=== PATIENT | male | born 1960 | race American Indian/Alaskan Native ===

== ENCOUNTER 2021-09-04 08:12 | Emergency (ER) | payer OTHER ==
[2021-09-04 08:21] VITALS: BP 160/90
[2021-09-04] MEDS ORDERED: SODIUM CHLORIDE 0.9% 1000 ML 1,000 ML IV ONE ×2 (08:53→10:16)
[2021-09-04] MEDS ORDERED: ONDANSETRON 4 MG/2 ML INJ IV ONE (08:53)
[2021-09-04] MEDS ORDERED: KETOROLAC 30 MG/1 ML INJ IV ONE (08:53)
[2021-09-04] MEDS ORDERED: MORPHINE 4 MG/1 ML INJ IV ONE (08:53)
--- NOTE | 2021-09-04 08:58 | Emergency Department Report ---
ED Abdominal Pain HPI - General Chief Complaint: Abdominal Pain Stated Complaint: ABD PAIN/NAUSEA PUI?: No Time Seen by Provider: 09/04/21 08:38 Source: EMS Mode of arrival: Stretcher Limitations: No Limitations - History of Present Illness Initial Comments: 61 YO COMES to ER this morning with acute onset right flank pain. He endorses nausea and vomiting x2. He denies any difficulty urinating. He denies any blood in his urine. Patient reports he is otherwise healthy. He has no medical history including no surgeries. He takes no medicines. He denies drugs alcohol or cigarettes. Patient was ambulatory to ER in severe pain. The pain is right flank. MD Complaint: flank pain -: Sudden, hour(s) Location: R flank Radiation: suprapubic Severity: severe Severity scale (0 -10): 10 Quality: cramping Consistency: constant Improves With: nothing Worsens With: nothing Associated Symptoms: nausea, vomiting. denies: diarrhea, fever, chills, cons tipation, dysuria, hematemesis, hematochezia, melena, hematuria, anorexia, syncope - Related Data Previous Rx's Medication Instructions Recorded Last Taken Type Ondansetron [Zofran Odt] 4 mg PO Q8HR PRN #10 tab.rapdis 09/04/21 Unknown Rx Tamsulosin [Flomax] 0.4 mg PO QDAY #10 cap 09/04/21 Unknown Rx cephALEXin [Keflex] 500 mg PO Q12HR #20 cap 09/04/21 Unknown Rx traMADoL [Ultram] 50 mg PO Q6HR PRN #10 tablet 09/04/21 Unknown Rx Allergies Allergy/AdvReac Type Severity Reaction Status Date / Time No Known Allergies Allergy Verified 09/04/21 08:20 ED Review of Systems ROS: Stated complaint: ABD PAIN/NAUSEA Other details as noted in HPI Comment: All other systems reviewed and negative ED Past Medical Hx - Past Medical History Previous Medical History?: No - Surgical History Past Surgical History?: No - Family History Family history: no significant - Social History Smoking Status: Never Smoker Substance Use Type: None - Medications Home Medications: Home Medications Medication Instructions Recorded Confirmed Last Taken Type Ondansetron [Zofran Odt] 4 mg PO Q8HR PRN #10 tab.rapdis 09/04/21 Unknown Rx Tamsulosin [Flomax] 0.4 mg PO QDAY #10 cap 09/04/21 Unknown Rx cephALEXin [Keflex] 500 mg PO Q12HR #20 cap 09/04/21 Unknown Rx traMADoL [Ultram] 50 mg PO Q6HR PRN #10 tablet 09/04/21 Unknown Rx ED Physical Exam - General Limitations: No Limitations General appearance: alert, in no apparent distress - Head Head exam: Present: atraumatic, normocephalic - Eye Eye exam: Present: normal appearance - ENT ENT exam: Present: mucous membranes moist - Neck Neck exam: Present: normal inspection - Respiratory Respiratory exam: Present: normal lung sounds bilaterally. Absent: respiratory distress - Cardiovascular Cardiovascular Exam: Present: regular rate, normal rhythm. Absent: systolic murmur, diastolic murmur, rubs, gallop - GI/Abdominal GI/Abdominal exam: Present: soft, normal bowel sounds - Rectal Rectal exam: Present: deferred - Extremities Exam Extremities exam: Present: normal inspection - Back Exam Back exam: Present: normal inspection - Neurological Exam Neurological exam: Present: alert, oriented X3 - Psychiatric Psychiatric exam: Present: normal affect, normal mood - Skin Skin exam: Present: warm, dry, intact, normal color. Absent: rash ED Course Vital Signs 09/04/21 08:19 Temperature 97.7 F Pulse Rate 63 Respiratory 14 Rate Blood Pressure 160/90 [Right] O2 Sat by Pulse 100 Oximetry ED Medical Decision Making - Lab Data Result diagrams: 09/04/21 09:08 09/04/21 09:08 - Radiology Data Radiology results: report reviewed, image reviewed SEE REPORT - Medical Decision Making Lab Results 09/04/21 09/04/21 09/04/21 Range/Units 09:08 09:08 09:46 WBC 15.5 H (4.5-11.0) K/mm3 RBC 5.26 H (3.65-5.03) M/mm3 Hgb 14.6 (11.8-15.2) gm/dl Hct 45.4 (35.5-45.6) % MCV 86 (84-94) fl MCH 28 (28-32) pg MCHC 32 (32-34) % RDW 14.1 (13.2-15.2) % Plt Count 236 (140-440) K/mm3 Lymph % (Auto) 7.5 L (13.4-35.0) % [place] % (Auto) 3.5 (0.0-7.3) % Eos % (Auto) 0.1 (0.0-4.3) % Baso % (Auto) 1.0 (0.0-1.8) % Lymph # (Auto) 1.2 (1.2-5.4) K/mm3 [place] # (Auto) 0.5 (0.0-0.8) K/mm3 Eos # (Auto) 0.0 (0.0-0.4) K/mm3 Baso # (Auto) 0.2 H (0.0-0.1) K/mm3 Seg Neutrophils % 87.9 H (40.0-70.0) % Seg Neutrophils # 13.6 H (1.8-7.7) K/mm3 Sodium 137 (137-145) mmol/L Potassium 3.4 L (3.6-5.0) mmol/L Chloride 99.9 (98-107) mmol/L Carbon Dioxide 20 L (22-30) mmol/L Anion Gap 21 mmol/L BUN 11 (9-20) mg/dL Creatinine 1.3 (0.8-1.3) mg/dL Estimated GFR > 60 ml/min BUN/Creatinine Ratio 8 % Glucose 111 H (75-100) mg/dL Calcium 9.0 (8.4-10.2) mg/dL Total Bilirubin 0.60 (0.1-1.2) mg/dL Direct Bilirubin < 0.2 (0-0.2) mg/dL Indirect Bilirubin 0.4 mg/dL AST 22 (5-40) units/L ALT 20 (7-56) units/L Alkaline Phosphatase 89 (35-129) units/L Total Protein 7.8 (6.3-8.2) g/dL Albumin 4.4 (3.9-5) g/dL Albumin/Globulin Ratio 1.3 % Amylase 643 H (27-131) units/L Lipase 39 (13-60) units/L Urine Color Yellow (Yellow) Urine Turbidity Clear (Clear) Urine pH 6.0 (5.0-7.0) Ur Specific [place] 1.030 (1.003-1.030) Urine Protein 100 mg/dl (Negative) mg/dL Urine Glucose (UA) Neg (Negative) mg/dL Urine Ketones Neg (Negative) mg/dL Urine Blood Neg (Negative) Urine Nitrite Neg (Negative) Urine Bilirubin Neg (Negative) Urine Urobilinogen 2.0 (<2.0) mg/dL Ur Leukocyte Esterase Neg (Negative) Urine WBC (Auto) 2.0 (0.0-6.0) /HPF Urine RBC (Auto) 56.0 (0.0-6.0) /HPF U Epithel Cells (Auto) < 1.0 (0-13.0) /HPF Urine Mucus Few /HPF Vital Signs 09/04/21 08:19 Temperature 97.7 F Pulse Rate 63 Respiratory 14 Rate Blood Pressure 160/90 [Right] O2 Sat by Pulse 100 Oximetry UA NOTED LABS NOTED CR NORMAL WBC NOTED CT NOTED 2L NS/ 1 GM ROCEPHIN AND PAIN MANAGEMENT IN ER 1000 REEXAM- RESTING COMFORTABLY [address] LAURA WILL DC HOME WITH DC PLAN OF CARE INCLUDING DIET, ACTIVITY, MEDS, FOLLOW UP. PT VERBALIZES UNDERSTANDING. ON DC TAKING PO AND IN NAD - Differential Diagnosis RO K STONE/PANCREATIS/GERD/GASTRITIS Critical care attestation.: If time is entered above; I have spent that time in minutes in the direct care of this critically ill patient, excluding procedure time. ED Disposition Clinical Impression: Kidney stones UTI (urinary tract infection) Qualifiers: Urinary tract infection type: site unspecified Disposition: 01 HOME / SELF CARE / HOMELESS Is pt being admited?: No Does the pt Need Aspirin: No Condition: Stable Instructions: Kidney Stones, Dietary Guidelines to Help Prevent Kidney Stones, Abdominal or Pelvic Ultrasound Additional Instructions: STAY WELL HYDRATED WITH WATER FOLLOW UP WITH PCP AND UROLOGY REFERRALS BELOW MOTRIN OR TYLENOL CAN BE USED FOR PAIN WELL MEDS ORDERED TODAY Prescriptions: Tamsulosin [Flomax] 0.4 mg PO QDAY #10 cap cephALEXin [Keflex] 500 mg PO Q12HR #20 cap traMADoL [Ultram] 50 mg PO Q6HR PRN #10 tablet PRN Reason: Pain Ondansetron [Zofran Odt] 4 mg PO Q8HR PRN #10 tab.rapdis PRN Reason: Vomiting Referrals: ÓSCAR HOBBS MD [Primary Care Provider] - 3-5 Days KELLY RUFF MD [Staff Physician] - 3-5 Days KRISTIN BELLA MD [Staff Physician] - 3-5 Days Time of Disposition: 11:27
[2021-09-04 09:53] LABS: Basophils # (Auto) 0.2 K/mm3 (0.0-0.1); Eosinophils % (Auto) 0.1 % (0.0-4.3); Hematocrit 45.4 % (35.5-45.6); Hemoglobin 14.6 gm/dl (11.8-15.2); Lymphocytes # (Auto) 1.2 K/mm3 (1.2-5.4); Lymphocytes % (Auto) 7.5 % (13.4-35.0); Mean Corpuscular HGB Conc 32 % (32-34); Mean Corpuscular Volume 86 fl (84-94); Monocytes # (Auto) 0.5 K/mm3 (0.0-0.8); Monocytes % (Auto) 3.5 % (0.0-7.3); Platelet Count 236 K/mm3 (140-440); Red Blood Count 5.26 M/mm3 (3.65-5.03); Red Cell Distribution Width 14.1 % (13.2-15.2)
--- NOTE | 2021-09-04 09:56 | Cat Scan Report ---
CT ABDOMEN AND PELVIS WITHOUT CONTRAST INDICATION: right flank pain. TECHNIQUE: Axial CT images were obtained through the abdomen and pelvis without IV contrast. All CT scans at [facility] are performed using CT dose reduction for ALARA by means of automated exposure control. COMPARISON: None available. FINDINGS: LOWER CHEST: No significant abnormality. LIVER: No significant abnormality. GALLBLADDER: No significant abnormality. BILE DUCTS: No significant abnormality. PANCREAS: No significant abnormality. SPLEEN: No significant abnormality. ADRENALS: No significant abnormality. RIGHT KIDNEY and URETER: Mild hydronephrosis and perinephric stranding with obstructing 3 mm right UV J stone LEFT KIDNEY and URETER: No significant abnormality. STOMACH and SMALL BOWEL: No significant abnormality. COLON: No significant abnormality. APPENDIX: Normal. PERITONEUM: No free fluid. No free air. No fluid collection. LYMPH NODES: No significant adenopathy. AORTA and ARTERIES: No significant abnormality. IVC and VEINS: No significant abnormality. URINARY BLADDER: No significant abnormality. REPRODUCTIVE ORGANS: No significant abnormality. ADDITIONAL FINDINGS: None. SKELETAL SYSTEM: Moderate degenerative changes lumbar spine. IMPRESSION: 1. Obstructing 3 mm right UVJ stone with mild right hydronephrosis Signer Name: Roland Caban MD Signed: 09/04/2021 9:52 AM Workstation Name: [id number]
[2021-09-04 10:04] LABS: Bilirubin,Urine NEG (Negative); Blood,Urine NEG (Negative); Color,Urine Yellow (Yellow); Mucus,Urine FEW /HPF
[2021-09-04] MEDS ORDERED: cefTRIAXone/NS 1 GM/50 ML 1 GM/50 ML BAG IV ONE (10:16)
[2021-09-04 10:22] LABS: Alanine Aminotransferase 20 units/L (7-56); Albumin 4.4 g/dL (3.9-5); BUN/Creatinine Ratio 8; Blood Urea Nitrogen 11 mg/dL (9-20); Hemolysis Index 10
[2021-09-04 10:23] LABS: Bilirubin,Direct < 0.2 mg/dL (0-0.2)
[2021-09-04] MEDS ORDERED: ONDANSETRON 4 MG ODT TAB PO ONE (11:30)
[2021-09-04] MEDS ORDERED: HYDROcodone/ACETAMINOPHEN 10-325MG TAB PO ONE (11:30)
== END 2021-09-04 12:19 | disposition home or self-care (01) ==
LOC: ED 08:12
DX: N20.0 Calculus of kidney (principal); N39.0 Urinary tract infection, site not specified
CPT/HCPCS: 36415; 74176; 80048; 80076; 81001; 82150; 83690; 85025; 96361; 96374; 96375; 99284; J1885; J2270; J2405; J7030